=== PATIENT | female | born 1955 | race Caucasian/White ===

== ENCOUNTER 2021-01-21 13:45 | Outpatient (RCR) | payer OTHER, SELFPAY ==
[2021-01-21] MEDS: COVID-19 VACC, MRNA(PFIZER)/PF 30 MCG/0.3 ML SYRINGE IM (09:17)
[2021-02-11] MEDS: COVID-19 VACC, MRNA(PFIZER)/PF 30 MCG/0.3 ML SYRINGE IM (08:56)
== END 2021-01-21 23:59 ==
LOC: IMMUN 13:45
PROVIDERS: PCP Nurse Practitioner Family; Visit Provider Family Medicine
DX: Z23 Encounter for immunization (principal)
CPT/HCPCS: 0001A; 0002A; 91300

== ENCOUNTER 2021-12-27 09:19 | Day surgery (SDC) | payer MEDICARE, SELFPAY ==
--- NOTE | 2021-12-24 13:11 | HP.PCM_ITS ---
History and Physical Date of Admission: 12/27/21 Chief Complaint: pain in left buttock History of Present Illness: This is a 66 Y/O female who was seen and evaluated at our office today as a new consult. Pt was referred to this office by Dr Dami Ramirez. Pt's chief complaint is left buttock pain. Pt states she has had this pain for about 10 months, does not remember an initial injury. Pt states the pain is right in the lowest part of her buttocks where she sits. States sitting and riding in the car makes the pain worse, standing will help. Pt continues to walk a mile a day without increase in pain, the pain is when she sits. Pt has had a MRI of her left hip, has had PT with no relief. Pt is here for an injection to help with the pain. Pain: left buttock Quality: constant when sitting. Region: left buttock Severity: aching, burning , occasional sharp pain Timing: dec 2020 Aggravated by: sitting on hard chairs, sitting for long periods Relieved by: laying down, standing up Pain score (out of 10): 2 /10 Other info: Reports pain in left buttock when sitting. patient has done physical therapy and has seen a chiropractor. states that pain is constant when sitting. states that her chiropractor and Dr. Ramirez have all said she has a bursa issue. states that she feels like she is sitting on a lumpy pillow. Review of Systems: Patient denies any recent fever, chills, headache, change in weight without trying, vision or hearing problems. No cp, sob, gonzales, pnd, orthopnea, or peripheral edema.They note no lumps or swollen glands, no new rashes, changing moles, or change in bowel or bladder function. Mood has been good and overall doing well. Past Medical History: h/o arthritis h/o wrist fracture h/o [id number] s/p tubal ligation Family History: ======== Structured Family History ======== Father: Heart disease, Arthritis Mother: Heart disease, Arthritis Grandparent: Heart disease; diabetes Social History: [Tobacco: Never smoker Pipe Smoker: No Cigar Smoker: No Chewing Tobacco User: No Electronic Cigarette User: No] Living situation: Occupation: retired Tobacco: never smoked EtOH: occasionally Rec. drugs: denies Allergies: No Known Allergies Medications: 1) cranberry 200mg, Take 1 tablet by mouth once daily 2) estradiol 0.5 mg 0.5-0.1mg, Take 1 tablet by mouth every morning 3) magnesium 400mg 4) probiotic 250 mg 5) vitamin d 2000 unit, Take 1 tablet by mouth once daily Physical Examination: Wt: 131.4 lb Ht/Ln: 63 in BMI: 23.3 BP: 157/100 Pulse: 90 RR: 16 Temp: 97.1F Pain: 1 Well nourished and well developed in no acute distress. Alert and oriented to person, place and time. Affect is normal and appropriate. Mucosa pink and moist. Respirations even and unlabored. Neck is supple without significant lymphadenopathy or thyromegaly. Abdomen soft & non-tender. No HSM or masses appreciated. Extremities show no cyanosis, clubbing, or edema. Musculoskeletal exam: pt is ambulating to and from the examination room with a normal gait without any assistance of any devices, pt was unable to ambulate on her heels and tip toes without difficulty, ROM of the lumbar spine is limited to 50 degrees flexion and <20 degrees extension, lateral rotation without pain. On inspection of the lower back there is no surgical scar. Alignment of the spine is normal. On superficial and deep palpation there is no tenderness at the bilateral paraspinal muscle no muscle spasms, there is no step off on the spinous process. There is no tenderness and negative facet loading bilaterally, negative SI joint tenderness, Pain elicited with deep palpation to left lower buttocks region. Negative for pain with palpation in the piriformis region. SLR test is negative bilaterally, OCTAVIO test is negative bilaterally, motor function is 5/5 on the right lower extremity muscles and 5/5 on the left lower extremity muscles, sensory exam intact to light touch on the right and the left, reflexes are symmetrical bilateral and 2+ on the right knee jerk and Achilles and 2+ on the left knee jerk and Achilles, pulses and capillary refill are intact. Goals: Health Concerns: Assessment & Plan: # Ischial bursitis (M70.70): # Other long term care phlebotomist (current) drug therapy (Z79.899): Continue current medication regime. OARRS was reviewed today. UDS was performed today and will be reviewed on the next encounter to monitor pt medications compliance. SOAPP score is 0 MRI of the left hip was reviewed with the pt today and they appear to understand. There are no signs of diversion or addiction with the pt, there is also no signs of abuse or misuse, continues to do well with their medications without any side effects, we will continue monitoring the pt closely. pt has tried multiple modalities in the past with little or no success. Will schedule the pt for a therapeutic/diagnostic left ischial tuberosity bursa steroid injection under fluoroscopy We have discussed the risks, benefits as well as alternatives of the procedure and the patient appears to understand and would like to proceed with the above plan. Reviewed with the pt today our opioid agreement and they appear to understand. PEG was reviewed today. Life style modifications were also discussed today and the pt appears to understand. Risks and benefits of the above meds were discussed with the pt and they appear to understand. The common side effects of the medications were discussed and all of their questions and concerns were answered and they appear to understand Discussed natural and expected course of this diagnosis and need to alert me if symptoms do not follow expected course, or if any worse. Pt is to continue with her PT and HEP. The above plan was discussed today with the pt in details and they appear to understand and agrees to continue with the plan.
[2021-12-27 09:50] VITALS: BP 163/95; PULSE 76; RESP 16; TEMP 37.4; O2SAT 99; BMI 23.6
[2021-12-27] MEDS: Lactated Ringers 1,000 ML 15 ML IV (10:00)
--- NOTE | 2021-12-27 10:34 | RAD_ITS ---
PROCEDURE: Left ischial tuberosity bursa steroid injection. DATE OF EXAMINATION: 12/27/2021. INDICATION: Female, 66 years old. Chronic pain. FLUOROSCOPY TIME (if supplied): (11.9 seconds) minutes/seconds. 3 images were obtained. RAD/Fluoro Guided Needle Placement IMPRESSION: Intraoperative imaging provided for left ischial tuberosity bursa steroid injection. Electronically Signed: Asher Andrew MD at 13:56 EST ,
[2021-12-27] MEDS: Lidocaine 1% (5 ml sdv) 5 ML Vial (10:40)
[2021-12-27] MEDS: Bupivacaine 0.25% 30 ML Vial (10:40)
[2021-12-27] MEDS: MethylPREDNISolone Acetate 80 MG/ML Vial (10:40)
[2021-12-27 10:52] VITALS: BP 144/65; BP 163/95; PULSE 60; RESP 17; TEMP 37; O2SAT 100
[2021-12-27 10:55] VITALS: BP 144/68; BP 163/95; PULSE 60; RESP 16; O2SAT 100
[2021-12-27 11:00] VITALS: BP 148/68; BP 163/95; PULSE 57; RESP 16; O2SAT 100
[2021-12-27 11:11] VITALS: BP 149/78; BP 163/95; PULSE 55; RESP 16; TEMP 36.8; O2SAT 100
[2021-12-27 11:21] VITALS: BP 163/95
--- NOTE | 2021-12-27 11:21 | PCM.OPRPT ---
Report of Operation Date of Procedure: 12/27/21 Description of Surgical Findings:: PREOPERATIVE DIAGNOSIS: Left ischial bursitis, left hip bursitis POSTOPERATIVE DIAGNOSIS: Left ischial bursitis, left hip bursitis PROCEDURE PERFORMED: Left ischial tuberosity bursa steroid injection under fluoroscopy guidance. ANESTHESIA: MAC. BLOOD LOSS: Minimal. COMPLICATIONS: None. DESCRIPTION OF PROCEDURE: History and physical of today was reviewed. Risks and benefits of the procedure were explained. The patient understood and agreed to proceed. Informed consent was obtained. IV inserted per routine protocol. The patient was taken to the operating room and placed in the prone position with a pillow positioned beneath the abdomen. The left side of the lower back and buttock area was prepped and draped in a sterile fashion using iodine x3. Under fluoroscopy guidance on an AP view, the left ischial bone and tuberosity was visualized at approximately midway and 2 inches caudad to the area. The skin and subcutaneous tissue was anesthetized with approximately 2 mL of 1% lidocaine using a 25-gauge regular needle. Under direct visualization with fluoroscopy at the midpoint, using a 22-gauge 5 -inch spinal needle, the needle was advanced via the skin, perpendicular to the old plane. The needle was then further advanced until a pop was felt. Once the needle was at the vicinity of the piriformis bursa and muscle, after negative aspiration for blood or CSF and confirmation on AP as well as oblique and lateral view, a total of 2 mL of contrast was injected to confirm correct placement of the needle as well as an elliptical form around the area of the ischial tuberosity and bursa. After repeated confirmation, a total of 10 mL of preservative-free 0.25% Marcaine with 80 mg of Depo-Medrol was injected in and around the ischial tuberosity bursa. The needle was then removed intact. The patient experienced no sign or symptoms of intrathecal or intravascular injection. The patient experienced no paresthesia. The procedure was completed without any apparent difficulty or any complications. The patient appeared to tolerate it well. Assessment and plan: This is a 66-year-old female with left ischial tuberosity bursitis, bursitis of the left hip status post left-sided ischial bursa steroid injection under fluoroscopic guidance, patient will continue her current medications, patient will follow in approximately 1 to 2 weeks for reevaluation.
== END 2021-12-27 23:59 | disposition home or self-care (01) ==
LOC: SDC 09:21 → AC 09:26
PROVIDERS: PCP Nurse Practitioner Family; Referring Provider Anesthesiology Pain Medicine; Visit Provider Anesthesiology Pain Medicine
PROC: 3E0U3GC Introduction of Other Therapeutic Substance into Joints, Percutaneous Approach (ICD-10-PCS; CPT 20610; principal; 2021-12-27 10:55)
DX: M70.72 Other bursitis of hip, left hip (principal); Z79.899 Other long term (current) drug therapy
CPT/HCPCS: 20611; 76000; 77002; J7120

== ENCOUNTER 2022-02-21 09:05 | Day surgery (SDC) | payer MEDICARE, SELFPAY ==
[2022-02-21 09:47] VITALS: BP 162/85; PULSE 77; RESP 16; TEMP 36.5; O2SAT 100; BMI 23.1
[2022-02-21] MEDS: Lactated Ringers 1,000 ML 15 ML IV (09:53)
[2022-02-21] MEDS: Lidocaine 1% (2ml-nursery) 2 ML VIAL (10:19)
[2022-02-21] MEDS: Bupivacaine 0.25% 30 ML Vial (10:19)
[2022-02-21] MEDS: 0.9% Normal Saline (Pres. free 10 ML Vial (10:20)
[2022-02-21] MEDS: MethylPREDNISolone Acetate 80 MG/ML Vial (10:20)
--- NOTE | 2022-02-21 10:20 | RAD_ITS ---
INDICATION: CAUDAL EPIDURAL INJECTION EXAMINATION/TECHNIQUE: X-RAY - IR Fluoro Guide Injection Spine COMPARISON: None. FLUOROSCOPY TIME: 3.2 seconds. FLUOROSCOPY DOSE: 2.13 mGy FINDINGS: 2 spot fluoroscopic images were obtained intraoperatively. Images demonstrate needle placement for cortical epidural injection. No radiologist was present for the procedure, please refer to operative report for details. RAD/Fluor Guidance for Spine Inj IMPRESSION: Please refer to operative report for details. Electronically Signed: Jm Baird MD at 14:22 EDT ,
[2022-02-21 10:26] VITALS: BP 137/72; BP 162/85; PULSE 76; RESP 18; TEMP 36.1; O2SAT 100
[2022-02-21 10:30] VITALS: BP 150/77; BP 162/85; PULSE 73; RESP 16; O2SAT 100
[2022-02-21 10:35] VITALS: BP 162/82; BP 162/85; PULSE 70; RESP 16; O2SAT 98
[2022-02-21 10:40] VITALS: BP 159/82; BP 162/85; PULSE 62; RESP 16; TEMP 37.1; O2SAT 100
[2022-02-21 10:51] VITALS: BP 162/85
--- NOTE | 2022-02-21 12:16 | OP.PCM_ITS ---
Report of Operation Date of Procedure: 02/21/22 Pre-Operative Diagnosis: Lumbosacral radiculopathy, lumbosacral degenerative di sc disease, lumbosacral spinal stenosis Post-Operative Diagnosis: Lumbosacral radiculopathy, lumbosacral degenerative disc disease, lumbosacral spinal stenosis Surgery/Procedure Performed:: Caudal epidural steroid injection under fluoroscopic guidance Type of Anesthesia: MAC Estimated Blood Loss (mL): Minimal Description of Procedure: DESCRIPTION OF PROCEDURE: History and physical of today was reviewed. Risks and benefits of the procedure were explained. The patient understood and agreed to proceed. Informed consent was obtained. IV inserted per routine protocol. The patient was taken to the operating room and placed in the prone position with a pillow positioned underneath the abdomen. The lower back and tailbone area was prepped and draped in a sterile fashion using iodine x3. Under fluoroscopy guidance on a lateral view, the caudal space was identified. The skin and subcutaneous tissue was anesthetized with approximately 3 mL of 1% lidocaine using a 25-gauge regular needle. Under direct visualization with fluoroscopy, using a 22-gauge 3-1/2-inch spinal needle, the needle was advanced via the skin through the sacral hiatus. The tip of the needle was passed through the sacrococcygeal ligament and advanced to approximately S4 area. After negative aspiration of blood or CSF, a total of 3 mL of contrast was injected to confirm correct placement of the needle as well as cephalad spread. The spread was followed to approximately L5 area. After confirmation on AP as well as lateral view and repeated negative aspiration, a total of 15 mL of preservative-free 0.125% Marcaine with 80 mg of Depo-Medrol was injected easily. The needle was then removed intact. The patient experienced no sign or symptoms of intrathecal or intravascular injection. The patient experienced no paresthesia. The procedure was completed without any apparent difficulty or any complications. The patient appeared to tolerate it well. ASSESSMENT AND PLAN: This is a 66-year-old female with lumbosacral radiculopathy, lumbosacral degenerative disc disease, lumbosacral spinal stenosis status post caudal epidural steroid injection, patient will continue her current medications, patient will follow in approximately 2 weeks for reevaluation. Complications None
== END 2022-02-21 10:55 | disposition home or self-care (01) ==
LOC: SDC 09:08 → AC 09:30
PROVIDERS: PCP Nurse Practitioner Family; Referring Provider Anesthesiology Pain Medicine; Visit Provider Anesthesiology Pain Medicine
PROC: 3E0S3BZ Introduction of Anesthetic Agent into Epidural Space, Percutaneous Approach (ICD-10-PCS; CPT 62282; principal; 2022-02-21 10:15)
DX: M51.17 Intervertebral disc disorders with radiculopathy, lumbosacral region (principal); M46.96 Unspecified inflammatory spondylopathy, lumbar region; M48.07 Spinal stenosis, lumbosacral region; M47.817 Spondylosis without myelopathy or radiculopathy, lumbosacral region; M70.70 Other bursitis of hip, unspecified hip; Z79.899 Other long term (current) drug therapy
CPT/HCPCS: 62323; 64483; 77003; J7120; J3490

== ENCOUNTER 2025-04-04 05:24 | Day surgery (SDC) | payer MEDICARE, SELFPAY ==
--- NOTE | 2025-04-02 14:37 | PAT.ANE_ITS ---
Pre-Assessment Diagnosis/Proposed Procedure Planned Operative Procedure(s): cscope Anesthesia History Anesthesia History - print developer automatic: Anesthesia History - print developer automatic Hx Hospitalization No 04/02/25 10:35 Any Problems With Anesthesia No 04/02/25 10:35 Cholinesterase deficiency No 04/02/25 10:35 You/Your Family Experience No 04/02/25 10:35 fever (hyperthermia) with Relationship Recent Exposure to Contagious No 02/21/22 09:47 Disease Does patient have nerve No 04/02/25 10:35 stimulator Patient instructed to have device shut off --Does patient have Pacemaker or ICD? When Was Last Pacemaker Check QUESTION #4 FULL TEXT: You/Your Family Experience fever (hyperthermia) with Anesthesia Last Oral Intake Last Oral intake: Last Oral Intake NPO since Meds taken in AM with sips of water? Meds patient instructed to take am of surgery PONV PONV - print developer automatic: PONV - print developer automatic Female Yes 04/02/25 10:35 HX of Motion Sickness No 04/02/25 10:35 HX of N/V After Surgery No 04/02/25 10:35 Non-Smoker Yes 04/02/25 10:35 Duration of Surgery greater No 04/02/25 10:35 than 60 minutes Number of Risk Factors 2 04/02/25 10:35 PONV Score Moderate Risk 04/02/25 10:35 Height & Weight Height & Weight: Anesthesia: Height & Weight Height 5 ft 3 in 02/21/22 09:47 Respiratory Assessment Respiratory Assessment - print developer automatic: Respiratory Tract Infection Hx - print developer automatic Hx Respiratory Tract Infection No 04/02/25 10:35 STOP Sleep Apnea STOP Sleep Apnea - print developer automatic: STOP Sleep Apnea - print developer automatic Hx Hypertension Yes: CONTROLLED WITH MED 04/02/25 10:35 Hx Sleep Apnea No 04/02/25 10:35 CPAP BIPAP Do you snore loudly (louder Yes 04/02/25 10:35 than talking or can be heard Do you often feel tired/ No 04/02/25 10:35 fatigued/ sleepy during daytime? Has anyone observed you stop No 04/02/25 10:35 breathing during sleep? STOP Results Positive 04/02/25 10:35 QUESTION #5 FULL TEXT : Do you snore loudly (louder than talking or can be heard through closed doors)? 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 Specify any problems Hx of Preganancy in last 3 N/A 04/02/25 10:35 Months Nurse Filling Out Transfusion NBUCHER 04/02/25 10:35 & Questions: Date: 04/02/25 04/02/25 10:35 Time: 10:37 04/02/25 10:35 Patient unable to answer at this time (ie. confused, unrespo /Reproduction History /Reproductive History - print developer automatic: /Reproductive Hx- print developer automatic Hx Now No 04/02/25 10:35 Gestational Age (in weeks): EDC: Hx Hx Para Hx Section SAB No 04/02/25 10:35 [facility] Medical History (Updated 04/02/25 @ 10:42 by Debi Griffin) Wears glasses Cancer Syncope Heartburn Gastric reflux Non-smoker Cardiology follow-up encounter History of echocardiogram History of steroid therapy Osteopenia Arthritis Home Medications ?Medication ?Instructions ?Recorded ?Last Taken ?Type lisinopril 5 mg tablet 5 mg PO DAILY 06/06/24 Unkno wn History calcium 800 mg PO BID 01/20/25 Unkno wn History calcium carbonate (Tums) 200 mg PO TID PRN gerd 01/20 Unknown History cranberry 500 mg capsule 1,000 mg PO QDAY 01/20/25 Un known History famotidine 20 mg tablet (Pepcid) 20 mg PO QDAY PRN tom d 01/20/25 Unknown History lactobacillus combination no.9 4 4,000 mmu cells PO QD AY 01/20/25 Unknown History billion cell capsule (Adult 50 Plus Probiotic) magnesium 250 mg tablet 125 mg PO QDAY 01/20/25 Unkn own History peppermint oil 50 mg 50 mg PO DAILY 01/20/25 Unkn own History capsule,delayed release Allergy/AdvReac Type Severity Reaction Status Date / Time No Known Allergies Allergy Verified 04/02/25 10:32 Surgical History (Updated 04/02/25 @ 10:42 by Debi Griffin) History of local excision of skin lesion History of wisdom tooth extraction H/O colonoscopy Hx of tubal ligation History of surgery on wrist Social History Smoking Status: Never smoker second hand exposure: No alcohol intake: current alcohol intake frequency: a few times a month what type of physical activity do you participate in: walking Audit: Pertinent Findings Pertinent Findings Echo (EF%) pertinent findings: December 13, 2024. EF of 55 to 60%. RVSP is 20 mmHg. There is no pericardial effusion. No aortic stenosis. 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 1. Vasovagal symptoms-this occurred following a episode of diarrhea. Check echo. (See above) discussed hydration. 2. Chest wall pain-this is following a fall on her chest. Workup in the ER was negative. Patient was on prednisone. Will start Motrin instead. Check echo (see above). Recommendation Anesthesia Recommendation Anesthesia recommendation: OPTIMIZED for anesthesia
[2025-04-04] VITALS (7 sets, daily range): BP systolic 113–162; BP diastolic 63–88; PULSE 55–82; RESP 16; TEMP 36.1–36.9; O2SAT 93–100; BMI 22.2
[2025-04-04] MEDS: Lactated Ringers 1,000 ML 15 ML IV (05:45)
--- NOTE | 2025-04-04 06:30 | COLBX_PTH ---
PATIENT: ELIZABETH DO LOC: EN U#:[id number] AGE/SX: 69/F ROOM: RE04/04/[address]: Dr. Ranjan Nice DO : 1955 BED: DIS: 04/04/2025 SPEC #: [id number] RECD: 04/04/25 15:27 STATUS: JESSICA RETorey #: [id number] DAIJA: 04/04/25 06:[address]: Ranjan Nice DEPT: SURGICAL PATHOLOGY RECD BY: Rohan Schneider ENTERED: 04/07/25 08:56 SP TYPE: COLON BX OT DR: Pippa Henriquez, IT RISK ADVISOR-C Tissues: A - Ileum, NOS B - COLON BIOPSY Procedures: Surgery Specimen Level IV HEADER OPERATION: Colonoscopy with biopsy PRE-OP DIAGNOSIS: Diarrhea TISSUE SUBMITTED: A- Terminal ileum biopsy, B- Random colon biopsy MICROSCOPIC DIAGNOSIS A. Small bowel, terminal ileum, biopsy: Normal villous morphology with no specific pathologic change. B. Colon, random, biopsy: Colonic mucosa with no specific pathologic change. The histologic features of microscopic colitis are not demonstrated. MICROSCOPIC DESCRIPTION Slides are reviewed. GROSS DESCRIPTION A. Received in formalin in a container labeled with the patient's name, date of , and terminal ileum biopsy are multiple garrett-pink fragments of mucosal tissue measuring 0.7 x 0.7 x 0.3 cm in aggregate. Submitted in toto in A1. B. Received in formalin in a container labeled with the patient's name, date of , and random colon biopsy are multiple garrett-pink fragments of mucosal tissue measuring 1.6 x 0.9 x 0.3 cm in aggregate. Submitted in toto in B1. [facility] 04-07-2025 CPT:39712u3
--- NOTE | 2025-04-04 06:35 | PCM.PRE.AN2 ---
ASA Classification* ASA Classification ASA Classification: 2 Assessment & Plan Anesthesia* Anesthesia Assessment Anesthesia Assessment: Discussed sedation and/or anesthesia options, risks, benefits, and alternatives with patient/parents/legal guardian/POA. Questions invited. The patient/parents/legal guardian/POA seems to understand and agrees to proceed with anesthesia plan. Reviewed the physical assessment, medical history, allergy history and patient home medications list prior to surgery/procedure/anesthetic and documented any changes. Performed airway and anesthesia risk assessments. 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 When Was Last Pacemaker Check QUESTION #4 FULL TEXT: You/Your Family Experience fever (hyperthermia) with Anesthesia Last Oral Intake Last Oral intake: Last Oral Intake NPO since 03:30 04/04/25 05:47 Meds taken in AM with sips of Yes 04/04/25 05:47 water? Meds patient instructed to take am of surgery Any additional information?: Yes Meds taken in AM with sips of water?: Yes PONV PONV - technical marketing consultant: PONV - technical marketing consultant Female Yes 04/02/25 10:35 HX of Motion Sickness No 04/02/25 10:35 HX of N/V After Surgery No 04/02/25 10:35 Non-Smoker Yes 04/02/25 10:35 Duration of Surgery greater No 04/02/25 10:35 than 60 minutes Number of Risk Factors 2 04/02/25 10:35 PONV Score Moderate Risk 04/02/25 10:35 Height & Weight Height & Weight: Anesthesia: Height & Weight Height 5 ft 3 in 04/04/25 05:47 Weight: 57 kg 04/04/25 05:47 Body Mass Index (BMI) 22.2 04/04/25 05:47 Respiratory Assessment Respiratory Assessment - technical marketing consultant: Respiratory Tract Infection Hx - technical marketing consultant Hx Respiratory Tract Infection No 04/02/25 10:35 STOP Sleep Apnea STOP Sleep Apnea - technical marketing consultant: STOP Sleep Apnea - technical marketing consultant Hx Hypertension Yes: CONTROLLED WITH MED 04/02/25 10:35 Hx Sleep Apnea No 04/02/25 10:35 CPAP BIPAP Do you snore loudly (louder Yes 04/02/25 10:35 than talking or can be heard Do you often feel tired/ No 04/02/25 10:35 fatigued/ sleepy during daytime? Has anyone observed you stop No 04/02/25 10:35 breathing during sleep? STOP Results Positive 04/02/25 10:35 QUESTION #5 FULL TEXT : Do you snore loudly (louder than talking or can be heard through closed doors)? 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 Specify any problems Hx of Preganancy in last 3 N/A 04/02/25 10:35 Months Nurse Filling Out Transfusion [facility] 04/02/25 10:35 & Questions: Date: 04/02/25 04/02/25 10:35 Time: 10:37 04/02/25 10:35 Patient unable to answer at this time (ie. confused, unrespo /Reproduction History /Reproductive History - technical marketing consultant: /Reproductive Hx- technical marketing consultant Hx Now No 04/02/25 10:35 Gestational Age (in weeks): EDC: Hx Hx Para Hx Section SAB No 04/02/25 10:35 Active Medications Active Medications: Current Medications Generic Name Dose Route Start Last Admin Trade Name Freq PRN Reason Stop Dose Admin Lactated Ringer's 1,000 mls @ 15 mls/hr 04/04/25 05:30 04/04/25 05:45 IV 15 mls/hr .Q48H LINDA Administration PFSH Medical History Wears glasses Cancer Syncope Heartburn Gastric reflux Non-smoker Cardiology follow-up encounter History of echocardiogram History of steroid therapy Osteopenia Arthritis Home Medications ?Medication ?Instructions ?Recorded ?Last Taken ?Type lisinopril 5 mg tablet 5 mg PO DAILY 06/06/24 04/04/25 03:30 History calcium 800 mg PO BID 01/20/25 Unknown History calcium carbonate (Tums) 200 mg PO TID PRN gerd 01/20/25 Unknown History cranberry 500 mg capsule 1,000 mg PO QDAY 01/20/25 Unknown History famotidine 20 mg tablet (Pepcid) 20 mg PO QDAY PRN gerd 01/20/25 Unknown History lactobacillus combination no.9 4 4,000 mmu cells PO QDAY 01/20/25 Unknown History billion cell capsule (Adult 50 Plus Probiotic) magnesium 250 mg tablet 125 mg PO QDAY 01/20/25 Unknown History peppermint oil 50 mg 50 mg PO DAILY 01/20/25 Unknown History capsule,delayed release Allergy/AdvReac Type Severity Reaction Status Date / Time No Known Allergies Allergy Verified 04/04/25 05:46 Surgical History History of local excision of skin lesion History of wisdom tooth extraction H/O colonoscopy Hx of tubal ligation History of surgery on wrist Social History Smoking Status: Never smoker second hand exposure: No alcohol intake: current alcohol intake frequency: a few times a month what type of physical activity do you participate in: walking Review of Systems (Anesthesia) ROS Narrative System reviewed and no additional complaints, except as documented.
--- NOTE | 2025-04-04 06:50 | PCM.HP.STD ---
HPI - General General Date of Admission: 04/04/25 Date of Service: 04/04/25 Chief Complaint: Diarrhea HPI Narrative ELIZABETH DO, is a 69 F who presents today for evaluation of diarrhea. - April 2024 had 9 episodes of diarrhea - would have one episode of diarrhea on days she had the diarrhea - treated prophylactically with Azithromycin - reports intermittent bouts of diarrhea - syncopal episodes 11/24/2024 - reports denies any other form of illness - she was having lower abdominal cramping with diarrhea - no sick contacts - dairy products cause gas - she started Azithromycin 01/13 for continued abdominal cramping - did not collect a stool specimen - denies nay bleeding - her last colonoscopy was [address] Veloz - she reports she was told to f/u in 10 years - typically has formed stools once daily - can have smaller stools on other days - c/o tenesmus at times - recently started IBGuard - denies any N/V - occasional reflux at HS - pepcid at HS - denies any dysphagia - denies any family h/o colon CA or polyps - denies any h/o esophageal or gastric CA - denies any family h/o IBD or celiac sprue - she is taking a probiotic [facility] Medical History Wears glasses Cancer Syncope Heartburn Gastric reflux Non-smoker Cardiology follow-up encounter History of echocardiogram History of steroid therapy Osteopenia Arthritis Home Medications ?Medication ?Instructions ?Recorded ?Last Taken ?Type lisinopril 5 mg tablet 5 mg PO DAILY 06/06/24 04/04/25 03:30 History calcium 800 mg PO BID 01/20/25 Unknown History calcium carbonate (Tums) 200 mg PO TID PRN gerd 01/20/25 Unknown History cranberry 500 mg capsule 1,000 mg PO QDAY 01/20/25 Unknown History famotidine 20 mg tablet (Pepcid) 20 mg PO QDAY PRN gerd 01/20/25 Unknown History lactobacillus combination no.9 4 4,000 mmu cells PO QDAY 01/20/25 Unknown History billion cell capsule (Adult 50 Plus Probiotic) magnesium 250 mg tablet 125 mg PO QDAY 01/20/25 Unknown History peppermint oil 50 mg 50 mg PO DAILY 03/17/25 Unknown History capsule,delayed release Allergy/AdvReac Type Severity Reaction Status Date / Time No Known Allergies Allergy Verified 04/04/25 05:46 Surgical History History of local excision of skin lesion History of wisdom tooth extraction H/O colonoscopy Hx of tubal ligation History of surgery on wrist Social History Smoking Status: Never smoker second hand exposure: No alcohol intake: current alcohol intake frequency: a few times a month what type of physical activity do you participate in: walking ROS Constitutional Constitutional: Denies fatigue, fever(s), poor appetite, weight gain or weight loss Gastrointestinal Gastrointestinal: Denies belching, bloating, change in bowel habits, change in stool character, chewing difficulty, coffee ground emesis, constipation, cramping, diarrhea, dyspepsia, dysphagia, early satiety, excessive flatus, fecal incontinence, heartburn, hematemesis, hematochezia, hemorrhoids, loose stools, melena, nausea, odynophagia, rectal bleeding, tenesmus, vomiting or weight changes Vital Signs Vital Signs Vital Signs: 04/04/25 05:47 04/04/25 05:47 04/04/25 06:38 Temperature 98.4 F 98.4 F Temperature Source Temporal Pulse Rate 82 82 Respiratory Rate 16 16 Respiratory Pattern Normal Blood Pressure 162/88 H 162/88 H Blood Pressure Mean 112 Blood Pressure Source Monitor Blood Pressure Position Sitting Blood Pressure Location Left Arm Pulse Ox 100 100 Oxygen Delivery Method Room Air Room Air Weight Weight: 125 lb 10.616 oz Body Mass Index (BMI) 22.2 Physical Exam Const alert, oriented x3, no apparent distress and healthy appearing General Appearance: cooperative GI normal to inspection, nondistended, normoactive bowel sounds, soft to palpation, non-tender and non-distended Percussion: normal to percussion Rectal Exam: deferred Assessment & Plan Assessment/Plan (1) Diarrhea: QUALIFIERS: Diarrhea type: unspecified type Qualified Code(s): R19.7 - Diarrhea, unspecified PLAN: Assessment and Plan Assessment and Plan (1) Diarrhea: Status: Acute Qualifiers: Diarrhea type: unspecified type Qualified Code(s): R19.7 - Diarrhea, unspecified Comment: 69y/o female presents for initial consultation with complaints of intermittent episodes of diarrhea. She reports having nine episodes of diarrhea April 2024 and symptoms resolved with a course of Azithromycin. She did well until 11/24/2024 when she had sudden onset lower abdominal cramping and diarrhea with syncopal episode. She reports cardiac w/u was unremarkable. She continued to have intermittent episodes of diarrhea with associated cramping and recently completed a second round of Azithromycin. She denies any prior stool testing and believes she has IBS. She denies any bleeding or weight loss. I have scheduled her for a colonoscopy. Plan: - Start a probiotic (Align, Culturelle or Penaloza Colon Health) once daily. These are all multispecies probiotics, pick the cheapest one. - Fibercon 2 tablets once daily with 8 ounces of water after a meal. May take up to 3 weeks for symptom improvement. IBS includes symptoms such as abdominal pain, bloating, diarrhea, constipation or mixed bowel habits. Patients can also experience small intestinal bacterial overgrowth (SIBO), food sensitivities exacerbating symptoms. Making dietary changes with a low FODMAP diet, gluten free diet or antiinflammatory diet have shown to be beneficial as well as taking a daily probiotic. Physical activity and stress management are also important in managing your gut health; as this helps regulate autonomic function and improve gut motility. Studies show yoga, walking, meditation, relaxation techniques, mindfulness and deep breathing exercises are also beneficial for gut health. If you are not already taking a probiotic, I recommend a once daily multispecies probiotic such as Align, Culturelle or Penaloza Colon Health. In addition to a probiotic, I recommend a daily fiber supplement such as FiberCon tablets. Taking two FiberCon tablets once daily helps with both constipation (by softening stools and promoting movement) and diarrhea (by absorbing excess fluid and firming stools). Fiber helps maintain regular bowel movements which create a more balanced gut environment and can help reduce gut irritation and bloating. Consistent fiber intake can support beneficial bacteria by promoting gut motility and reducing stagnation of waste. Incorporating a fiber and probiotic supplement paired with lifestyle changes such as hydration (aim for at least 64 ounces daily), movement and a balanced diet may take up to three weeks to show noticeable benefits. Consistency is levy in allowing the gut time to adapt. The gut-brain axis plays a significant role, and effective treatment requires a multifaceted approach that goes beyond medications alone. While pharmacological therapy can be beneficial, the greatest impact comes from a comprehensive, whole-body approach that includes dietary modifications, stress management, physical activity, and gut health optimization. Addressing these factors together helps improve overall well-being and symptom management. Plan Details
--- NOTE | 2025-04-04 07:26 | OP.CCLET_ITS ---
04/04/2025 Pippa Henriquez Re : Colonoscopy procedure for Deborah Lentz [place] This procedure was performed on Friday, April 04, 2025. My impressions and recommendations are as follows: Impressions : - Congested mucosa in the recto-sigmoid colon, in the sigmoid colon, in the transverse colon and in the ascending colon. Biopsied. - Diverticulosis in the recto-sigmoid colon. - Congested mucosa in the terminal ileum. Biopsied. Recommendations : - Discharge patient to home. - Resume previous diet. - Continue present medications. - Await pathology results. - Repeat colonoscopy in 5 years for surveillance. My findings are described in the full procedure note, which is enclosed. If I can be of further assistance, please feel free to contact me at . Sincerely, Ranjan Nice, 04/04/2025 7:25:58 AM This report has been signed electronically.
--- NOTE | 2025-04-04 07:26 | OP.COLON_ITS ---
Patient Name: Deborah Lentz Procedure Date: 04/04/2025 6:32 AM Date of : 1955 Age: 69 Procedure: Colonoscopy Indications: Clinically significant diarrhea of unexplained origin Providers: Ranjan Nice DO Referring MD: Ranjan Nice DO Medicines: Monitored Anesthesia Care Patient Profile: This is a 69 year old female. Refer to note in patient chart for documentation of history and physical. Last Colonoscopy: more than 3 years ago. Complications: No immediate complications. Procedure: Pre-Anesthesia Assessment: - Prior to the procedure, a History and Physical was performed, and patient medications and allergies were reviewed. The patient is competent. The risks and benefits of the procedure and the sedation options and risks were discussed with the patient. All questions were answered and informed consent was obtained. Patient identification and proposed procedure were verified by the physician in the pre-procedure area. Mental Status Examination: alert and oriented. Airway Examination: normal oropharyngeal airway and neck mobility. Respiratory Examination: clear to auscultation. CV Examination: normal. Prophylactic Antibiotics: The patient does not require prophylactic antibiotics. Prior Anticoagulants: The patient has taken no anticoagulant or antiplatelet agents except for NSAID medication. ASA Grade Assessment: II - A patient with mild systemic disease. After reviewing the risks and benefits, the patient was deemed in satisfactory condition to undergo the procedure. The anesthesia plan was to use monitored anesthesia care (MAC). Immediately prior to administration of medications, the patient was re-assessed for adequacy to receive sedatives. The heart rate, respiratory rate, oxygen saturations, blood pressure, adequacy of pulmonary ventilation, and response to care were monitored throughout the procedure. The physical status of the patient was re-assessed after the procedure. After I obtained informed consent, the scope was passed under direct vision. Throughout the procedure, the patient's blood pressure, pulse, and oxygen saturations were monitored continuously. The Colonoscope was introduced through the anus and advanced to the terminal ileum. The colonoscopy was performed without difficulty. The patient tolerated the procedure well. The quality of the bowel preparation was adequate. The terminal ileum, ileocecal valve, appendiceal orifice, and rectum were photographed. Scope In: 7:03:03 AM Scope Withdrawal Time 0 hours 11 minutes 36 seconds Scope Out: 7:17:27 AM Total Procedure Duration Time 0 hours 14 minutes 24 seconds Findings: The perianal and digital rectal examinations were normal. An area of mildly congested mucosa was found in the recto-sigmoid colon, in the sigmoid colon, in the transverse colon and in the ascending colon. Biopsies were taken with a cold forceps for histology. Verification of patient identification for the specimen was done. Estimated blood loss was minimal. A single small-mouthed diverticulum was found in the recto-sigmoid colon. A patchy area of the terminal ileum was congested. Biopsies were taken with a cold forceps for histology. Verification of patient identification for the specimen was done. Estimated blood loss was minimal. Impression: - Congested mucosa in the recto-sigmoid colon, in the sigmoid colon, in the transverse colon and in the ascending colon. Biopsied. - Diverticulosis in the recto-sigmoid colon. - Congested mucosa in the terminal ileum. Biopsied. Recommendation: - Discharge patient to home. - Resume previous diet. - Continue present medications. - Await pathology results. - Repeat colonoscopy in 5 years for surveillance. Procedure Code(s): --- Professional --- 31599, Colonoscopy, flexible; with biopsy, single or multiple CPT copyright 2021 [employer]. All rights reserved. The codes documented in this report are preliminary and upon hydrography teacher review may be revised to meet current compliance requirements. Ranjan Nice DO 04/04/2025 7:25:58 AM This report has been signed electronically. Number of Addenda: 0 Note Initiated On: 04/04/2025 6:32 AM
--- NOTE | 2025-04-04 07:29 | PCM.POST.ANE ---
Anesthesia: Postop Eval I Current Vital Signs Temperature: 97 F Pulse Rate: 60 Blood Pressure: 115/63 Respiratory Rate: 16 Pulse Ox: 100 Oxygen Delivery Method: Room Air Assessment Airway patent: Yes Spontaneous unlabored respirations: Yes Mental status: Asleep nausea: No Vomiting: No Anesthesia Complication: No Fluid Hydration Crystalloid volume administer (ml): 700 Total IV fluid infused: 700 Progress Note Anesthesia document: Postop Eval 1 completed: Yes
--- NOTE | 2025-04-04 16:34 | PCM.POSTANE2 ---
Anesthesia Postop Eval I Sum Postop Eval Completion status Anesthesia document: Postop Eval 1 completed: Yes Anesthesia Postop Eval I Summary Anesthesia Postop Eval I Summary: Anesthesia Postop Eval I: Assessment Summary Airway patent Yes 04/04/25 07:30 [email or web address] Spontaneous unlabored Yes 04/04/25 07:30 [email or web address] respirations Mental status Asleep 04/04/25 07:30 [email or web address] nausea No 04/04/25 07:30 [email or web address] Vomiting No 04/04/25 07:30 [email or web address] Anesthesia Postop Eval I: Fluid Summary Crystalloid volume administer 700 04/04/25 07:30 [email or web address] (ml) Colloids volume administered ( ml) Blood Product volume administered (ml) Total IV fluid infused 700 04/04/25 07:30 [email or web address] Anesthesia Postop Eval I: Summary Notes Anesthesia Complication No 04/04/25 07:30 [email or web address] Anesthesia Complication Comment: Post-operative progress note Anesthesia: Postop Eval II Evaluation Mental status: Awake Pain Level: 0 nausea: No Vomiting: No
== END 2025-04-04 08:02 | disposition home or self-care (01) ==
LOC: EN 05:24 → AC 05:25
PROVIDERS: PCP Nurse Practitioner Family; Referring Provider Nurse Practitioner Family; Visit Provider Internal Medicine Gastroenterology
PROC: 0DJD8ZZ Inspection of Lower Intestinal Tract, Via Natural or Artificial Opening Endoscopic (ICD-10-PCS; CPT 45378; principal; 2025-04-04 06:25)
DX: R19.7 Diarrhea, unspecified (principal); K21.9 Gastro-esophageal reflux disease without esophagitis; K57.90 Diverticulosis of intestine, part unspecified, without perforation or abscess without bleeding; Z98.51 Tubal ligation status
CPT/HCPCS: 45380; 88305; J2405

== ENCOUNTER → 2025-04-24 | Outpatient (CLI) | payer MEDICARE, SELFPAY ==
[2025-04-25 14:08] LABS: Immunoglobulin A 94 mg/dL (87-352); t-Transglutaminase IgA <2 U/mL (0-3)
== END | disposition home or self-care (01) ==
LOC: LAB 09:57
PROVIDERS: PCP Nurse Practitioner Family; Referring Provider Nurse Practitioner Acute Care; Visit Provider Nurse Practitioner Acute Care
DX: K58.0 Irritable bowel syndrome with diarrhea (principal)
CPT/HCPCS: 36415; 82784; 83516